=== PATIENT | female | born 1965 | race Caucasian/White ===

== ENCOUNTER → 2017-12-11 | Outpatient (CLI) | payer OTHER ==
[~2017-12-11] MED LIST: NORE-45 PO
--- NOTE | 2017-12-11 16:19 | RADIOLOGY IMAGING REPORT ---
FACILITY: [facility] - [place] PATIENT NAME: YOSVANY CASON : [id number] MR: [id number] V: [id number] EXAM DATE: [id number] ORDERING PHYSICIAN: SAI ECHOLS TECHNOLOGIST: Rani Garcia PROCEDURE:BILATERAL DIGITAL SCREENING MAMMOGRAM WITH CAD ASSISTED INTERPRETATION & 3D TOMOSYNTHESIS COMPARISON:Prior mammograms 11/22/16 and priors to 04/15/11. INDICATIONS:screening FINDINGS: Breast parenchyma is heterogeneously dense. There are no mammographic findings concerning for malignancy. No significant change from priors. DIAGNOSTIC CATEGORY 1--NEGATIVE. RECOMMENDATIONS: ROUTINE MAMMOGRAM AND CLINICAL EVALUATION IN 1 YEAR. IMPRESSION: BIRADS 1: Negative. Dictated by: Felix Arriaga on 12/11/2017 at 13:56 Transcribed by: KARLY on 12/11/2017 at 14:01 Approved by: Felix Arriaga on 12/11/2017 at 16:18 [facility]
== END ==
LOC: MAMO 01:54
PROVIDERS: ATTEND Family Medicine
DX: Z12.31 Encounter for screening mammogram for malignant neoplasm of breast (principal)
CPT/HCPCS: 77063; 77067